=== PATIENT | male | born 1985 | race Two or more races ===

== ENCOUNTER 2023-07-29 11:38 | Emergency (ER) | payer BC, OTHER ==
[2023-07-29 11:55] VITALS: BP 138/81; PULSE 63; RESP 18; TEMP 97.5; BMI 31.8
== END 2023-07-29 13:02 | disposition home or self-care (01) ==
LOC: JERFT 11:38
DX: S61.308A Unspecified open wound of other finger with damage to nail, initial encounter (principal); W29.8XXA Contact with other powered hand tools and household machinery, initial encounter
CPT/HCPCS: 73140-TC-RT-FY; 99283-25